=== PATIENT | female | born 2000 | race Caucasian/White ===

== ENCOUNTER → 2019-12-28 | Outpatient (CLI) | payer BC | LOC: COL.RAD 06:44 | DX: K59.00 Constipation, unspecified (principal); R13.10 Dysphagia, unspecified; R19.7 Diarrhea, unspecified; R10.13 Epigastric pain; R11.2 Nausea with vomiting, unspecified ==

== ENCOUNTER → 2020-05-26 | Outpatient (CLI) | payer BC | LOC: COL.RAD | DX: K82.8 Other specified diseases of gallbladder (principal); K81.1 Chronic cholecystitis; R19.7 Diarrhea, unspecified | CPT/HCPCS: A9537; J2805 ==